=== PATIENT | female | born 1960 | race Caucasian/White ===

== ENCOUNTER 2019-10-17 06:14 | Outpatient (CLI) | payer OTHER, SELFPAY ==
[2019-10-17 06:30] VITALS: BP 132/82; PULSE 55; RESP 16; TEMP 37.1; O2SAT 96; BMI 30.1
[2019-10-17] MEDS: sodium chloride 0.9% 1,000 ML 30 ML IV (06:37)
--- NOTE | 2019-10-17 06:54 | ANES.PREANE2 ---
Pre-Anesthetic Assessment Pre-Anesthetic Assessment: Height/Weight: Height 1.6 m Weight 77.111 kg Temp Pulse Resp BP Pulse Ox 98.8 F 55 L 16 132/82 96 10/17/19 06:30 10/17/19 06:30 10/17/19 06:30 10/17/19 06:30 10/17/19 06:30 Preop Diagnosis: Mitral valve regurg Proposed Procedure: Operation Date: 10/17/19 07:00 Proposed Procedures p RAMIN (Transesophageal Echocardiogram)(Not Applicable) - Shefali Skaggs MD Was Beta Uday taken within 24 hours: Yes Last intake: 2099 Last Intake: 21:00 Social: Social History: Tobacco and No alcohol Packs per day: 1 Pack years: 40 Exam: Pre-Anes Outpt Exam: alert, oriented x 3, clear to auscultation bilaterally and regular rate & rhythm Airway: Submandibular: WNL Cervical ROM: WNL MP: 3 Dentition: Partials Pulmonary: Pulmonary: Sleep apnea (CPAP at night) CV/HEM: CV/HEM: HTN and Murmur Comments: mitral valve regurg : : None reported Hepatic: Hepatic: None reported GI: GI: GERD Comments: controlled Metabolic: Metabolic: DM Comments: avg 150 Musc/skel: Musc/skel: Lower Back Pain and OA/DJD Neuropsych: Neuropsych: Anxiety and Depression Anesthetic Plan: ASA status: 3 Anesthesia: Anesthesia Evaluation and MAC Risk of > 500 ml blood loss (7ml/kg in children): No Meds/Allergies Current Medications: Current Medications Generic Name Dose Route Start Last Admin Trade Name Freq PRN Reason Stop Dose Admin Sodium Chloride 1,000 mls @ 30 ml s/hr 10/17/19 06:30 10/17/19 06:37 Sodium Chloride 0.9% IV 10/18/19 06:29 30 mls/hr .Q24H LIVIER Administration PFSH Anesthesia PFSH: Medical History Diabetes HTN (hypertension) Hyperlipidemia Mitral regurgitation Sleep apnea Family History Grandmother Stroke HOCM (hypertrophic obstructive cardiomyopathy) Family/Other Stroke Mother HOCM (hypertrophic obstructive cardiomyopathy) surgery for HCM in her 40's Social History Smoking and tobacco status: current every day smoker Alcohol intake: never Data Anesthesia Cardiac Studies: No Data to Display
--- NOTE | 2019-10-17 07:00 | USCV_ITS ---
Irena Joyce Age: 59 Gender: F : 1960 Exam Date: 10/17/2019 07:23 Ordering Phys: Shefali Skaggs MD ([email or web address]) Technologist: Jeffy Nicholas [place] [facility] [place]: SEVER MR BP: / HR: 46 Rhythm: Sinus Technical Quality: Good MEASUREMENTS (Male / Female) Normal Values 2D ECHO LVOT Diameter 2.0 cm Medications Patient given IV sedation by anesthesia service, for details please refer to the anesthesia report. Complications None Proc. Components Images were obtained from mid esophageal and transgastric level. FINDINGS Left Ventricle Normal left ventricular cavity size. Asymmetrical septal hypertrophy with basal interventricular septum measured at 3 cm and posterior wall measured at 1.2 cm. Normal left ventricular systolic function. Left ventricular ejection fraction is estimated at 65 %. No regional wall motion abnormalities. Right Ventricle Normal right ventricular size and systolic function. Right ventricular systolic pressure 26 mmHg. Right Atrium Normal right atrial size. Left Atrium Mildly increased left atrial size. LA Appendage Normal left atrial appendage. Normal flow velocities in the left atrial appendage. No thrombus visualized in the left atrial appendage. IA Septum Normal interatrial septum. No patent foramen ovale or atrial septal defect by color Doppler or agitated saline study (bubble study). Mitral Valve Systolic anterior motion of anterior mitral valve leaflet. No mitral valve stenosis. Mild to moderate mitral valve regurgitation. Aortic Valve Mildly thickened trileaflet aortic valve. Flow acceleration noted in left ventricular outflow tract. Peak velocity across left ventricular outflow tract of 2.6 m/s, peak gradient across left ventricular outflow tract of 27 mm Hg. No aortic valve stenosis. Trace aortic valve regurgitation. Tricuspid Valve Structurally normal tricuspid valve. No tricuspid valve stenosis. Mild to moderate tricuspid valve regurgitation. Pulmonic Valve Structurally normal pulmonic valve. No pulmonary valve stenosis. Trace pulmonary valve regurgitation. Pericardium No pericardial effusion. Aorta Normal size aortic root and proximal ascending aorta. No aortic dilation aneurysm or dissection. CONCLUSIONS 1. Normal left ventricular cavity size and systolic function. Asymmetrical septal hypertrophy with basal interventricular septum measured at 3 cm and posterior wall measured at 1.2 cm. Left ventricular ejection fraction is estimated at 65 %. No regional wall motion abnormalities. 2. Normal right ventricular size and systolic function. 3. Mildly increased left atrial size. 4. Mild to moderate tricuspid valve regurgitation. 5. Systolic anterior motion of anterior mitral valve leaflet. Peak gradient across left ventricular outflow tract of 27 mm Hg. 6. These findings are likely suggestive of hypertrophic cardiomyopathy. Shefali Skaggs MD (Electronically Signed) Final Date: 20 October 2019 12:19 S
[2019-10-17 08:00] VITALS: BP 106/62; PULSE 69; RESP 17; TEMP 36.9; O2SAT 95
--- NOTE | 2019-10-17 08:04 | P.PCN_ITS ---
Procedure/Consent Time out: Time Out Performed: Yes Consent: Consent for Procedure: Consent obtained from patient Procedure Narrative: RAMIN Procedure note Indication: For assessment of mitral regurgitation Sedation: Propofol by anesthesia The patient was brought down to the coreroom foundry laborer (CPRU). Procedure was explained to the patient in detail and informed consent was obtained. Timeout was called. After achieving adequate sedation, the probe was inserted on first attempt. No blood on the probe post procedure. Prelim report: Normal left ventricle size and systolic function. Moderate mitral valve regurgitation. no left atrial or left atrial appendage mass or thrombus visualized. No ASD or PFO identified. Full report to follow. Patient tolerated the procedure well and initial recovery in coreroom foundry laborer. Acute Procedures Epistaxis Control: Time out performed: Yes
--- NOTE | 2019-10-17 08:08 | ANE.PACU2 ---
 Inpatient post-anesthesia follow up: Airway intact: Yes Vital signs: Temperature 98.8 F Pulse Rate 55 Respiratory Rate 16 Blood Pressure 132/82 Pulse Oximetry 96 Oxygen Delivery Me thod Room Air Oxygen Flow Rate Fraction of Inspir ed Oxygen Hydration adequate: Yes Nausea and vomiting: No Pain level: 1 Mental status: Baseline
[2019-10-17 08:15] VITALS: BP 112/72; PULSE 71; RESP 18; TEMP 37; O2SAT 96
[2019-10-17 08:42] VITALS: BP 120/60; PULSE 53; RESP 18; TEMP 37; O2SAT 96
== END 2019-10-17 06:15 | disposition home or self-care (01) ==
PROVIDERS: PCP Nurse Practitioner Family; Visit Provider Internal Medicine Cardiovascular Disease
PROC: (CPT 93312; principal; 2019-10-17 07:00)
DX: I34.0 Nonrheumatic mitral (valve) insufficiency (principal)
CPT/HCPCS: 12345; 93312; 93320; 93325; J7030

== ENCOUNTER 2020-03-22 11:58 | Outpatient (CLI) | payer OTHER, SELFPAY ==
[2020-03-22 12:30] VITALS: BMI 29.2
--- NOTE | 2020-03-22 12:31 | ECG_ITS ---
[facility] Test Date: 2020-03-22 Pat Name: Irena Joyce Department: Room: Gender: Female [employer]: : 1960 Requested By: Shefali Skaggs Order Number: [id number] Chen MD: Shefali Skaggs M.D. Interpretive Statements NAME OF STUDY: TREADMILL STRESS ECHOCARDIOGRAM INDICATION: Obstructive Hypertrophic cardiomyopathy Baseline blood pressure of 120/75 mmHg and heart rate of 65 bpm and oxygen saturation of 94%. EKG showed normal sinus rhythm, right axis deviation with nonspecific ST depression. The patient exercised for 1 minutes 52 seconds on a standard Silverio protocol. Patient attained a maximum heart rate of 104 beats per minute(64 % of the maximum predicted heart rate) with a blood pressure at the peak exercise of 149/91 mm Hg. The EKG at the peak exercise revealed sinus tachycardia at 104 bpm. Non specific 1/2-1 mm horizontal to downsloping ST depression in infero-lateral leads. Patient did not have any chest pain or any significant arrhythmias with the exercise. The study was terminated due to fatigue and shortness of breath. Blood pressure at the end of the recovery phase was 124/68 mm Hg with a heart rate of 57 beats per minute and oxygen saturation of 84%. CONCLUSION: 1. Normal EKG response to treadmill exercise with submaximal stress. 2. No exercise-induced chest pain or cardiac arrhythmia. 3. Decreased exercise tolerance, attained a maximum of 4.8 METs. 4. Echocardiogram portion of the study will be reported separately Electronically Signed On 03-29-2020 18:59:26 CDT by Shefali Skaggs M.D. [id number]
--- NOTE | 2020-03-22 12:31 | USCV_ITS ---
Stress Echo Irena Joyce Age: 59 Gender: F : 1960 Exam Date: 03/22/2020 12:49 Ordering Phys: Shefali Skaggs MD ([email or web address]) Technologist: Jany Morataya Exam Location: [facility] [place] Indication: Hypertophic Obstructive Cardiomyopathy Rhythm: Sinus Patient History: Chest pain, Valvular heart disease Cardiac Medications: Beta guy Medications in past 24 hours: Beta guy Contrast: Stress Results Protocol: Silverio Total dose(mL): Exercise Duration (min:sec): 01:52 METS: 4.6 Resting HR: 65 Resting BP: 120 / 75 Peak HR: 104 Peak BP: 149 / 100 Max Predicted HR: 162 64 % Max Predicted HR Target HR: 138 Double Product: [id number] Stress Summary: The patient's target heart rate was not achieved BP Response: Normal Reason for Termination: Maximal effort/unable to continue Cardiac Symptoms: Short of Breath, Fatigue ECG Analysis Resting ECG: Stress ECG: Arrhythmia: MEASUREMENTS (Male/Female) Normal Values FINDINGS Baseline echocardiogram: Normal left ventricular size and systolic function with ejection fraction estimated at 60%. Normal right ventricular size and systolic function. Resting left ventricular outflow tract peak velocity of 2.6 m/s and peak gradient of 28 mm Hg. Peak left ventricular outflow tract velocity of 4.3 m/s and peak gradient with Valsalva of 73 mmHg. Peak exercise echocardiogram: There is some augmentation of baseline left ventricular systolic function with submaximal stress. Patient did not reach target heart rate. Peak left ventricular outflow tract velocity of 3 m/s and peak gradient with exercise of 37 mmHg. Recovery echocardiogram: Normal left ventricular systolic function with no new regional wall motion abnormality noted. CONCLUSIONS 1. This is a exercise stress echocardiogram. 2. Patient exercised for 1 minutes 52 seconds and reached 4.6 METS. Patient reached 64% of target heart rate. Double product of 15,496. 3. Normal resting echocardiogram. There were no submaximal stress-induced wall motion abnormalities. 4. Resting left ventricular outflow tract peak velocity of 2.6 m/s and peak gradient of 28 mm Hg. Peak left ventricular outflow tract velocity of 4.3 m/s and peak gradient with Valsalva of 73 mmHg. Peak left ventricular outflow tract velocity of 3 m/s and peak gradient with exercise of 37 mmHg. 5. EKG portion of the study would be reported separately. Shefali Skaggs MD (Electronically Signed) Final Date: 01 April 2020 13:08 S
[2020-03-22 13:49] VITALS: BP 126/84; PULSE 62
== END 2020-03-22 11:59 | disposition home or self-care (01) ==
LOC: CDL 11:59
PROVIDERS: PCP Nurse Practitioner Family; Visit Provider Internal Medicine Cardiovascular Disease
DX: I42.1 Obstructive hypertrophic cardiomyopathy (principal)
CPT/HCPCS: 93017; 93350

== ENCOUNTER 2021-05-20 12:48 | Outpatient (CLI) | payer OTHER, SELFPAY ==
--- NOTE | 2021-05-20 12:52 | XR_ITS ---
WS: [id number] DEXA (DUAL ENERGY X-RAY ABSORPTIOMETRY) Bone mineral density was performed using a [employer] machine. HISTORY: POSTMENOPAUSAL STATE COMPARISON: None available. Lumbar spine BMD (L1-L4): 1.193 g/cm2 T score: 0.1 Z score: 1.0 Total hip BMD: Left: 1.079 g/cm2. T score: 0.6 Z score: 1.2 Right: 1.022 g/cm2. T score: 0.1 Z score: 0.8 10 year probability of a major osteoporotic fracture is 13%. XR/XR DEXA axial skeleton* [id number] IMPRESSION: NORMAL BONE MINERAL DENSITY based upon the WHO classification for females.
== END 2021-05-20 12:49 | disposition home or self-care (01) ==
PROVIDERS: PCP Nurse Practitioner Family; Visit Provider Clinical Nurse Specialist Adult Health
DX: Z78.0 Asymptomatic menopausal state (principal)
CPT/HCPCS: 77080

== ENCOUNTER 2022-11-25 10:14 | Emergency (ER) | payer OTHER, SELFPAY ==
[2022-11-25 10:21] VITALS: BP 147/94; PULSE 65; RESP 16; TEMP 36.6; O2SAT 95; BMI 26.9
--- NOTE | 2022-11-25 10:35 | ED_ITS ---
Documented by User: SUZIE Nina 11/25/22 11:12 HPI - Animal Bite General: Chief Complaint: Animal Bite Stated Complaint: Cat bite on R wrist Time Seen by Provider: 11/25/22 10:16 History of Present Illness: Irena is a 62-year-old [id number] female that presents to the emergency department with a cat bite. Patient states that her cat last night. While dying the animal bit her on the right wrist. This morning she noted a reddened area that was warm to the touch and very tender. Tetanus updated 5 years ago Associated symptoms: Deny chills, fever(s) or headache(s) Review of Systems General: Reports: 10 or more systems reviewed and unremarkable except in HPI and below Const: Denies: fever(s), chills, change in appetite, change in weight, fatigue or malaise Card: Denies: chest pain, palpitations, irregular heart rhythm, edema, dyspnea on exertion, orthopnea or leg pain with exertion Resp: Denies: dyspnea, productive cough, non-productive cough, wheezing, stridor or chest congestion GI: Denies: abdominal pain, nausea, vomiting, dysphagia, diarrhea, constipation, bloating, GI cramping or hematochezia : Denies: flank pain, difficulty voiding, dysuria, urinary frequency, urinary urgency, urinary hesitancy, oliguria or hematuria Musc: Denies: neck pain, back pain, extremity pain, joint pain, joint swelling, joint redness, joint warmth or muscle weakness Skin/Breast: Reports: other (Cellulitic area to the right wrist that is approximately 4 cm in diameter. ); Denies: rash, pruritus, erythema, photosensitivity or new lesions Neuro: Denies: headache(s), numbness in extremities, weakness in extremities, sensory changes, lack of coordination, difficulty walking, frequent falls, dizziness, confusion, Slurred speech present, difficulty communicating thoughts, seizure-like activity or involuntary movements Endo: Denies: polyuria, polydipsia or tired all the time Kiran/Lymph: Denies: easy bruising or easy bleeding PFS ED PFSH: Medical History Chronic back pain hx of herniated disc Diabetes HTN (hypertension) Hyperlipidemia Macular degeneration Mitral regurgitation Neuropathy Nonalcoholic fatty liver NSVT (nonsustained ventricular tachycardia) Screening for colon cancer Sleep apnea Surgical History Hx of hysterectomy Hx of tonsillectomy Family History Grandmother Stroke HOCM (hypertrophic obstructive cardiomyopathy) Family/Other Stroke Mother HOCM (hypertrophic obstructive cardiomyopathy) surgery for HCM in her 40's Social History Smoking and tobacco status: former smoker Quit status (tobacco): has quit using tobacco Year quit tobacco: 2020 Alcohol intake: never Physical Exam Const: COMMON NORMALS: no acute distress, patient oriented x3 and alert GENERAL APPEARANCE: cooperative ORIENTATION/CONSCIOUSNESS: Yes awake, Yes oriented to person, Yes oriented to place and Yes oriented to time HENMT: COMMON NORMALS: normocephalic and atraumatic HEAD & SCALP: normocephalic and atraumatic FACE & SINUS: normal facial exam TYMPANIC MEMBRANE: TM abnormal TM laterality: right and other (Swelling but without erythema) MOUTH: Normal oral and palatal mucosa present THROAT: posterior oropharynx normal Eye: COMMON NORMALS: Equal, round and reactive pupils present, EOMs intact bilaterally, conjunctivae normal and no scleral icterus GENERAL EYE: appearance normal, both eyes and all related structures ALIGNMENT: Yes alignment normal PERIORBITAL: periorbital findings normal CONJUNCTIVA: Yes conjunctivae normal PUPIL: Yes Equal, round and reactive pupils present Neck/C-Spine: COMMON NORMALS: full ROM GENERAL: Yes normal visual inspection Lymph: LYMPHATIC: no lymphadenopathy noted Chest: COMMONS NORMALS: normal inspection of the chest Breast/axilla inspection: Yes no chest deformity, asymmetry, normal contours, no nodules, masses, tenderness Resp: COMMON NORMALS: normal respiratory effort, No retractions, No use of accessory muscles and clear to auscultation bilaterally EFFORT & INSPECTION: Yes able to speak in complete sentences and Yes symmetric chest movement AUSCULTATION: clear to auscultation bilaterally Cardio: COMMON NORMALS: regular rate, regular rhythm and Peripheral pulses 2+ throughout RATE: regular rate RHYTHM: regular rhythm PERIPHERAL PULSES: Peripheral pulses 2+ throughout GI: COMMON NORMALS: Normal to inspection, nondistended, normoactive bowel sounds present, Soft to palpation, non-tender and No hepatosplenomegaly present INSPECTION: Yes normal to inspection AUSCULTATION: Yes normoactive bowel sounds PALPATION: Yes Soft to palpation and Yes No hepatosplenomegaly present RECTAL EXAM: deferred Extremity: COMMON NORMALS: normal to inspection NARRATIVE EXTREMITY EXAM: Right upper extremity: Skin is clean and dry. There are 2 puncture wounds noted to the right volar wrist She states this was from her cat Cellulitic area around the wounds measuring about 4 to 5 cm Warm to the touch. No drainage Neurovascularly intact GENERAL: Yes normal exam except as noted Neuro: COMMON NORMALS: patient oriented x3 SENSORIUM/ORIENTATION: Yes alert, Yes oriented to person, Yes oriented to place and Yes oriented to time CRANIAL NERVES: Yes CN normal except as noted Psych: COMMON NORMALS: mental status grossly normal, Normal thought process present, cooperative, activity/motor behavior normal, denies homicidal ideation and denies suicidal ideation THOUGHT PROCESS: Normal thought process present Skin: COMMON NORMALS: no rashes or lesions noted, no wounds and turgor normal GENERAL SKIN EXAM: no rashes or lesions noted and turgor normal Course Vital Signs: Vital signs: Vital Signs Temperature 97.9 F 11/25/22 10:21 Pulse Rate 66 11/25/22 11:15 Respiratory Rate 16 11/25/22 10:21 Blood Pressure 134/83 11/25/22 11:15 Pulse Oximetry 95 11/25/22 11:15 Oxygen Delivery Me thod Room Air 11/25/22 10:21 MDM - Animal Bite Medical Decision Making Patient was seen in the emergency department due to a cat bite. Patient has a cellulitic area to the volar aspect of the right wrist. Her tetanus was approximately 5 years ago The patient reports the animal was not vaccinated; however, it is an indoor cat. There are other animals in the home that are outdoor cats but there is been no evidence of aggression by these animals.. There is another animal sick in the home?a dog that had a seizure yesterday. Patient is declining rabies vaccine. I am updating her tetanus and initiating antibiotic treatment. She is to return to the emergency department if she develops worsening symptoms. Otherwise follow-up with primary care Discharge Plan Discharge Patient Disposition: Home Clinical Impression: Cat bite, Cellulitis Condition: Stable Prescriptions: New amoxicillin-pot clavulanate 875-125 mg tablet 1 tab PO BID 7 Days Qty: 14 0RF No Action esomeprazole magnesium [Nexium] 40 mg capsule,delayed release(DR/EC) 40 mg PO DAILY hydrocodone-acetaminophen 10-325 mg tablet 1 tab PO QID PRN (Reason: Pain (Scale Score 4-6)) albuterol sulfate [ProAir HFA] 90 mcg/actuation HFA aerosol inhaler 2 puff INHALATION Q6H PRN (Reason: shortness of breath or wheezing) Qty: 8.5 0RF methylprednisolone [Medrol] 4 mg tablet 4 mg PO DAILY 4 Days Qty: 4 0RF amoxicillin-pot clavulanate [Augmentin] 500-125 mg tablet 1 tab PO TID 10 Days Qty: 30 0RF (DME) Accu-Chek Guide test strips Strip See Rx Instructions .Route Rx Instructions: As directed (DME) blood-glucose meter [Accu-Chek Guide Glucose Meter] Misc See Rx Instructions .Route Rx Instructions: As directed (DME) CPAP machine auto-titrate See Rx Instructions .Route .MEDSUPPLY Rx Instructions: 11-14 cm H2O pressure for ELOINA Prevnar 20 (PF) 0.5 mL syringe 0.5 ml IM ONCE Qty: 0.5 0RF Shingrix Adjuvant Component-PF Suspension 0.5 ml IM ONCE Qty: 0.5 1RF (DME) CPAP supplies, tubing mask and all necessary parts See Rx Instructions .Route .MEDSUPPLY Qty: 1 0RF Rx Instructions: As directed lovastatin 10 mg tablet 10 mg PO DAILY Qty: 90 3RF sertraline 100 mg tablet 100 mg PO DAILY Qty: 90 3RF metoprolol tartrate 100 mg tablet 50 mg PO BID 90 Days Qty: 90 3RF gabapentin 400 mg capsule 400 mg PO TID 90 Days Qty: 270 3RF tizanidine 4 mg tablet 4 mg PO QID PRN (Reason: Muscle Spasm) Qty: 90 3RF Bydureon BCise 2 mg/0.85 mL auto-injector 2 mg SUBCUT Q7D Qty: 0.85 11RF Discharge Orders: Discharge ED (Routine); Ordered 11/25/22 Ordered By: [facility] Bullard [facility] Referrals: Nadeem Eagle, B[employer] TO[employer] BUFFER [Primary Care Provider] - Discharge Diet: Advance as tolerated Discharge Activity: Resume usual activity Patient Instructions: Cellulitis, Animal Bite (ED), Pain Management Activity Restrictions/Additional Instructions: Please return to the emergency department for new concerning or worsening symptoms. Take your antibiotics as prescribed Coding Level of Care Code ED Plastic Extrusion Operator for Chg Fwd Documented by User: Bulmaro Bunch DO 11/28/22 05:17 HPI - Animal Bite General: Chief Complaint: Animal Bite Stated Complaint: Cat bite on R wrist Time Seen by Provider: 11/25/22 10:16 PFS ED PFSH: Medical History Chronic back pain hx of herniated disc Diabetes HTN (hypertension) Hyperlipidemia Macular degeneration Mitral regurgitation Neuropathy Nonalcoholic fatty liver NSVT (nonsustained ventricular tachycardia) Screening for colon cancer Sleep apnea Surgical History Hx of hysterectomy Hx of tonsillectomy Family History Grandmother Stroke HOCM (hypertrophic obstructive cardiomyopathy) Family/Other Stroke Mother HOCM (hypertrophic obstructive cardiomyopathy) surgery for HCM in her 40's Social History Smoking and tobacco status: former smoker Quit status (tobacco): has quit using tobacco Year quit tobacco: 2020 Alcohol intake: never Course Vital Signs: Vital signs: Vital Signs Temperature 97.9 F 11/25/22 10:21 Pulse Rate 66 11/25/22 11:15 Respiratory Rate 16 11/25/22 10:21 Blood Pressure 134/83 11/25/22 11:15 Pulse Oximetry 95 11/25/22 11:15 Oxygen Delivery Me thod Room Air 11/25/22 10:21 MDM - Animal Bite Medical Decision Making Patient was seen in the emergency department due to a cat bite. Patient has a cellulitic area to the volar aspect of the right wrist. Her tetanus was approximately 5 years ago The patient reports the animal was not vaccinated; however, it is an indoor cat. There are other animals in the home that are outdoor cats but there is been no evidence of aggression by these animals.. There is another animal sick in the home?a dog that had a seizure yesterday. Patient is declining rabies vaccine. I am updating her tetanus and initiating antibiotic treatment. She is to return to the emergency department if she develops worsening symptoms. Otherwise follow-up with primary care Chart reviewed and patient discussed with midlevel. Agree with assessment and plan. Medical Records I reviewed the patient's medical records. Lab Data I reviewed the patient's lab results. Discharge Plan Discharge Patient Disposition: Home Clinical Impression: Cat bite, Cellulitis Condition: Stable Prescriptions: New amoxicillin-pot clavulanate 875-125 mg tablet 1 tab PO BID 7 Days Qty: 14 0RF No Action esomeprazole magnesium [Nexium] 40 mg capsule,delayed release(DR/EC) 40 mg PO DAILY hydrocodone-acetaminophen 10-325 mg tablet 1 tab PO QID PRN (Reason: Pain (Scale Score 4-6)) albuterol sulfate [ProAir HFA] 90 mcg/actuation HFA aerosol inhaler 2 puff INHALATION Q6H PRN (Reason: shortness of breath or wheezing) Qty: 8.5 0RF methylprednisolone [Medrol] 4 mg tablet 4 mg PO DAILY 4 Days Qty: 4 0RF amoxicillin-pot clavulanate [Augmentin] 500-125 mg tablet 1 tab PO TID 10 Days Qty: 30 0RF (DME) Accu-Chek Guide test strips Strip See Rx Instructions .Route Rx Instructions: As directed (DME) blood-glucose meter [Accu-Chek Guide Glucose Meter] [facility] See Rx Instructions .Route Rx Instructions: As directed (DME) CPAP machine auto-titrate See Rx Instructions .Route .MEDSUPPLY Rx Instructions: 11-14 cm H2O pressure for ELOINA Prevnar 20 (PF) 0.5 mL syringe 0.5 ml IM ONCE Qty: 0.5 0RF Shingrix Adjuvant Component-PF Suspension 0.5 ml IM ONCE Qty: 0.5 1RF (DME) CPAP supplies, tubing mask and all necessary parts See Rx Instructions .Route .MEDSUPPLY Qty: 1 0RF Rx Instructions: As directed lovastatin 10 mg tablet 10 mg PO DAILY Qty: 90 3RF sertraline 100 mg tablet 100 mg PO DAILY Qty: 90 3RF metoprolol tartrate 100 mg tablet 50 mg PO BID 90 Days Qty: 90 3RF gabapentin 400 mg capsule 400 mg PO TID 90 Days Qty: 270 3RF tizanidine 4 mg tablet 4 mg PO QID PRN (Reason: Muscle Spasm) Qty: 90 3RF Bydureon BCise 2 mg/0.85 mL auto-injector 2 mg SUBCUT Q7D Qty: 0.85 11RF Discharge Orders: Discharge ED (Routine); Ordered 11/25/22 Ordered By: Nic Lee Referrals: Nadeem Eagle [employer]FFER [Primary Care Provider] - Discharge Diet: Advance as tolerated Discharge Activity: Resume usual activity Patient Instructions: Cellulitis, Animal Bite (ED), Pain Management Activity Restrictions/Additional Instructions: Please return to the emergency department for new concerning or worsening symptoms. Take your antibiotics as prescribed Coding Level of Care Code ED Plastic Extrusion Operator for Steve Vail
[2022-11-25] MEDS: amoxicillin-clav 875-125 mg Tablet 1 TAB PO (10:48)
[2022-11-25] MEDS: tetanus-diphtheria tox (adult) 0.5 mL SDV IM (10:48)
[2022-11-25 11:15] VITALS: BP 134/83; PULSE 66; O2SAT 95
== END 2022-11-25 11:16 | disposition home or self-care (01) ==
PROVIDERS: Emergency Provider Nurse Practitioner; PCP Clinical Nurse Specialist Adult Health
DX: S61.551A Open bite of right wrist, initial encounter (principal); W55.01XA Bitten by cat, initial encounter; Z87.891 Personal history of nicotine dependence; E11.9 Type 2 diabetes mellitus without complications; I10 Essential (primary) hypertension; E78.5 Hyperlipidemia, unspecified; H35.30 Unspecified macular degeneration; L03.113 Cellulitis of right upper limb; Z23 Encounter for immunization
CPT/HCPCS: 90471; 90714; 99283

== ENCOUNTER → 2023-04-13 11:41 | Outpatient (BNVA) | payer OTHER, SELFPAY | PROVIDERS: PCP Clinical Nurse Specialist Adult Health; Visit Provider Clinical Nurse Specialist Adult Health | DX: E11.9 Type 2 diabetes mellitus without complications (principal); I10 Essential (primary) hypertension | CPT/HCPCS: 80053; 80061; 83036; 84443; 85025 ==

== ENCOUNTER → 2023-06-27 14:16 | Outpatient (BNVA) | payer OTHER, SELFPAY | PROVIDERS: PCP Clinical Nurse Specialist Adult Health; Visit Provider Clinical Nurse Specialist Adult Health | DX: E11.9 Type 2 diabetes mellitus without complications (principal); I10 Essential (primary) hypertension; I34.0 Nonrheumatic mitral (valve) insufficiency; G47.30 Sleep apnea, unspecified; I42.1 Obstructive hypertrophic cardiomyopathy; J02.9 Acute pharyngitis, unspecified | CPT/HCPCS: 87880 ==

== ENCOUNTER 2023-08-19 20:55 | Emergency (ER) | payer OTHER, SELFPAY ==
[2023-08-19 21:01] VITALS: BP 132/84; PULSE 67; RESP 16; TEMP 36.6; O2SAT 96; BMI 27.4
--- NOTE | 2023-08-19 21:10 | ED_ITS ---
HPI - Skin/Abscess/Foreign Bdy General: Chief complaint: Skin/Abscess/Foreign Body Stated complaint: Face Swelling Time Seen by Provider: 08/19/23 21:10 History of Present Illness: Patient presents with some left anterior cervical neck tenderness. Patient denies any difficulty swallowing. Patient is managing secretions well. Patient has a history of cardiac valvular heart disease, ELOINA, and diabetes mellitus. Review of Systems General: Reports: 10 or more systems reviewed and unremarkable except in HPI and below PFSH ED PFSH: Medical History Chronic back pain hx of herniated disc Diabetes HTN (hypertension) Hyperlipidemia Macular degeneration Mitral regurgitation Neuropathy Nonalcoholic fatty liver NSVT (nonsustained ventricular tachycardia) Screening for colon cancer Sleep apnea Surgical History Hx of hysterectomy Hx of tonsillectomy Family History Grandmother Stroke HOCM (hypertrophic obstructive cardiomyopathy) Family/Other Stroke Mother HOCM (hypertrophic obstructive cardiomyopathy) surgery for HCM in her 40's Social History Smoking and tobacco/nicotine status: former use of tobacco/nicotine Quit status (tobacco/nicotine): has quit using Year quit tobacco: 2020 Alcohol intake: never Substance/Drug Use: never Physical Exam Const: COMMON NORMALS: alert HENMT: COMMON NORMALS: normocephalic HEAD & SCALP: normocephalic Neck/C-Spine: COMMON NORMALS: full ROM and no meningeal signs GENERAL: No anterior neck swelling, No lymphadenopathy and Yes tender (Left anterior) Resp: COMMON NORMALS: normal respiratory effort and clear to auscultation bilaterally AUSCULTATION: clear to auscultation bilaterally Cardio: COMMON NORMALS: regular rate and regular rhythm RATE: regular rate RHYTHM: regular rhythm Extremity: COMMON NORMALS: normal to inspection Neuro: SENSORIUM/ORIENTATION: Yes alert MENINGEAL SIGNS: Yes no meningeal signs Skin: COMMON NORMALS: turgor normal GENERAL SKIN EXAM: turgor normal Course Vital Signs: Vital signs: Vital Signs Temperature 97.8 F 08/19/23 21:01 Pulse Rate 67 08/19/23 21:01 Respiratory Rate 16 01/07/24 21:01 Blood Pressure 132/84 08/19/23 21:01 Pulse Oximetry 96 08/19/23 21:01 Oxygen Delivery Me thod Room Air 08/19/23 21:01 MDM - Skin/Abscess/Foreign Bdy Medicial Decision Making 62-year-old female presents with soreness to the left anterior neck with mild swelling. On exam patient has minimal to no swelling to the left neck. No redness. No palpable nodule or masses noted. Patient does report tenderness with palpation. Examination of the oral cavity notes no significant swelling or redness. Patient has fair dentition. Differential diagnosis includes but not limited to sialoadenitis, lymphadenitis, dental abscess, upper respiratory infection. Patient is managing secretions well. No signs of severe illness. Vital signs are normal. Possible infected salivary gland versus lymphadenitis. Will go ahead and treat with clindamycin 300 mg 4 times a day for the next 7 days. Instructed patient to monitor for worsening symptoms such as increasing redness and swelling of the neck or difficulty of swallowing. Patient reported understanding and agreed to plan. No radiology studies performed this visit Discharge Plan Discharge Patient Disposition: Home Clinical Impression: Sialadenitis Condition: Stable Prescriptions: New clindamycin HCl 300 mg capsule 300 mg PO QID 7 Days Qty: 28 0RF No Action esomeprazole magnesium [Nexium] 40 mg capsule,delayed release(DR/EC) 40 mg PO DAILY hydrocodone-acetaminophen 10-325 mg tablet 1 tab PO QID PRN (Reason: Pain (Scale Score 4-6)) albuterol sulfate [ProAir HFA] 90 mcg/actuation HFA aerosol inhaler 2 puff INHALATION Q6H PRN (Reason: shortness of breath or wheezing) Qty: 8.5 0RF methylprednisolone [Medrol] 4 mg tablet 4 mg PO DAILY 4 Days Qty: 4 0RF (DME) Accu-Chek Guide test strips Strip See Rx Instructions .Route Rx Instructions: As directed (DME) blood-glucose meter [Accu-Chek Guide Glucose Meter] Misc See Rx Instructions .Route Rx Instructions: As directed (DME) CPAP machine auto-titrate See Rx Instructions .Route .MEDSUPPLY Rx Instructions: 11-14 cm H2O pressure for ELOINA Prevnar 20 (PF) 0.5 mL syringe 0.5 ml IM ONCE Qty: 0.5 0RF Shingrix Adjuvant Component-PF Suspension 0.5 ml IM ONCE Qty: 0.5 1RF (DME) CPAP supplies, tubing mask and all necessary parts See Rx Instructions .Route .MEDSUPPLY Qty: 1 0RF Rx Instructions: As directed Trulicity 0.75 mg/0.5 mL pen injector 0.75 mg SUBCUT .weekly Qty: 2 3RF penicillin V potassium 500 mg tablet 500 mg PO TID 10 Days Qty: 30 0RF lovastatin 10 mg tablet 10 mg PO DAILY Qty: 90 3RF metoprolol tartrate 100 mg tablet 50 mg PO BID 90 Days Qty: 90 3RF tizanidine 4 mg tablet 4 mg PO QID PRN (Reason: Muscle Spasm) Qty: 90 3RF gabapentin 400 mg capsule 400 mg PO TID 90 Days Qty: 270 0RF sertraline 100 mg tablet 100 mg PO DAILY Qty: 90 3RF Discharge Orders: Discharge ED (Routine); Ordered 08/19/23 Ordered By: René Chambers Referrals: Nadeem Eagle NP [Primary Care Provider] - Discharge Diet: Usual diet Discharge Activity: Increase activity as tolerated Patient Instructions: Sialoadenitis (ED) Activity Restrictions/Additional Instructions: Drink plenty of water and fluids. Use acetaminophen and ibuprofen for pain and discomfort. Use clindamycin 300 mg 1 capsule 4 times a day for the next 7 days. Follow-up with primary care in 1 week for recheck. Return to ER for worsening symptoms such as difficulty swallowing, increasing redness and swelling to the neck, or new concerns. Coding Level of Care Code ED Elect Equip Maint Eng for Steve Vail
[2023-08-19] MEDS: clindamycin 150 mg Capsule 300 MG PO (21:48)
[2023-08-19 21:57] VITALS: PULSE 70; RESP 18
== END 2023-08-19 21:59 | disposition home or self-care (01) ==
PROVIDERS: Emergency Provider Nurse Practitioner Family; PCP Clinical Nurse Specialist Adult Health
DX: K11.20 Sialoadenitis, unspecified (principal); Z79.85 Long-term (current) use of injectable non-insulin antidiabetic drugs; Z87.891 Personal history of nicotine dependence; I10 Essential (primary) hypertension; E78.5 Hyperlipidemia, unspecified; H35.30 Unspecified macular degeneration; E11.40 Type 2 diabetes mellitus with diabetic neuropathy, unspecified
CPT/HCPCS: 99283

== ENCOUNTER 2023-09-04 09:27 | Emergency (ER) | payer OTHER, SELFPAY ==
[2023-09-04 09:58] VITALS: BP 125/80; PULSE 69; RESP 14; TEMP 36.9; O2SAT 95; BMI 27.4
[2023-09-04 12:46] VITALS: O2SAT 96
[2023-09-04] MEDS: morphine 4 mg/mL SDV 1 mL IM (12:46)
[2023-09-04] MEDS: dexamethasone 10 mg/mL INJ IM (12:47)
[2023-09-04] MEDS: methocarbamol 750 mg Tablet 1500 MG PO (12:48)
--- NOTE | 2023-09-04 12:55 | W.ED.BACK ---
HPI - Back Pain/Injury General: Chief Complaint: Back Pain/Injury Stated Complaint: back pains Time Seen by Provider: 09/04/23 11:48 Source: patient Mode of arrival: ambulatory Limitations: no limitations History of Present Illness: 63-year-old female has chronic back pain states she had worsening back pain last 3 to 4 days states she been having spasms especially with walking she denies any bowel or bladder incontinence. She rates the pain currently 8 4 out of 10. She does see pain management. She takes hydrocodone for pain at home Associated symptoms: Deny abdominal pain, chills, fever(s), nausea or vomiting Review of Systems Const: Denies: fever(s), chills, body aches or change in appetite ENMT: Denies: throat pain or dental pain Card: Denies: chest pain Resp: Denies: dyspnea GI: Denies: abdominal pain, nausea, vomiting or diarrhea Musc: Reports: back pain; Denies: neck pain Skin/Breast: Denies: rash Neuro: Denies: headache(s) PFSH ED PFSH: Medical History Chronic back pain hx of herniated disc Diabetes HTN (hypertension) Hyperlipidemia Macular degeneration Mitral regurgitation Neuropathy Nonalcoholic fatty liver NSVT (nonsustained ventricular tachycardia) Screening for colon cancer Sleep apnea Surgical History Hx of hysterectomy Hx of tonsillectomy Family History Grandmother Stroke HOCM (hypertrophic obstructive cardiomyopathy) Family/Other Stroke Mother HOCM (hypertrophic obstructive cardiomyopathy) surgery for HCM in her 40's Social History Smoking and tobacco/nicotine status: former use of tobacco/nicotine Quit status (tobacco/nicotine): has quit using Year quit tobacco: 2020 Alcohol intake: never Substance/Drug Use: never Physical Exam Const: COMMON NORMALS: no acute distress, patient oriented x3 and healthy appearing HENMT: COMMON NORMALS: normocephalic and atraumatic HEAD & SCALP: normocephalic and atraumatic Neck/C-Spine: COMMON NORMALS: full ROM and supple Chest: COMMONS NORMALS: normal inspection of the chest Resp: COMMON NORMALS: normal respiratory effort Cardio: COMMON NORMALS: regular rate, regular rhythm and No murmurs present (Cardio) RATE: regular rate RHYTHM: regular rhythm GI: COMMON NORMALS: Normal to inspection, nondistended, normoactive bowel sounds present, Soft to palpation, non-tender and no masses PALPATION: Yes Soft to palpation Back/Pelvis: OTHER: Tenderness to lower back no saddle anesthesia Extremity: COMMON NORMALS: normal to inspection and full ROM Neuro: COMMON NORMALS: patient oriented x3, moves all extremities and no focal motor deficits Psych: COMMON NORMALS: mental status grossly normal, Normal thought process present and cooperative THOUGHT PROCESS: Normal thought process present Skin: COMMON NORMALS: no rashes or lesions noted and no wounds GENERAL SKIN EXAM: no rashes or lesions noted Course Vital Signs: Vital signs: Vital Signs Temperature 98.5 F 09/04/23 09:58 Pulse Rate 69 09/04/23 09:58 Respiratory Rate 14 09/04/23 09:58 Blood Pressure 125/80 09/04/23 09:58 Pulse Oximetry 96 09/04/23 12:46 Oxygen Delivery Me thod Room Air 09/04/23 09:58 MDM - Back Pain/Injury Medical Decision Making Patient presents here with low back pain chronic in nature she is well-appearing here she has no signs of cord compression or epidural abscess we will give her Decadron shot we will place her on muscle relaxants and Naprosyn she is to follow-up with her chronic pain specialist she is stable for discharge return if worsening. Medical Records I reviewed the patient's medical records. No radiology studies performed this visit Discharge Plan Discharge Patient Disposition: Home Clinical Impression: Chronic back pain Condition: Stable Prescriptions: New methocarbamol 750 mg tablet 750 mg PO Q6H PRN (Reason: spasms) Qty: 20 0RF Naprosyn 500 mg tablet 500 mg PO BID PRN (Reason: pain) Qty: 20 0RF No Action esomeprazole magnesium [Nexium] 40 mg capsule,delayed release(DR/EC) 40 mg PO DAILY hydrocodone-acetaminophen 10-325 mg tablet 1 tab PO QID PRN (Reason: Pain (Scale Score 4-6)) albuterol sulfate [ProAir HFA] 90 mcg/actuation HFA aerosol inhaler 2 puff INHALATION Q6H PRN (Reason: shortness of breath or wheezing) Qty: 8.5 0RF (DME) Accu-Chek Guide test strips Strip See Rx Instructions .Route Rx Instructions: As directed (DME) blood-glucose meter [Accu-Chek Guide Glucose Meter] Misc See Rx Instructions .Route Rx Instructions: As directed (DME) CPAP machine auto-titrate See Rx Instructions .Route .MEDSUPPLY Rx Instructions: 11-14 cm H2O pressure for ELOINA (DME) CPAP supplies, tubing mask and all necessary parts See Rx Instructions .Route .MEDSUPPLY Qty: 1 0RF Rx Instructions: As directed lovastatin 10 mg tablet 10 mg PO DAILY Qty: 90 3RF metoprolol tartrate 100 mg tablet 50 mg PO BID 90 Days Qty: 90 3RF gabapentin 400 mg capsule 400 mg PO TID 90 Days Qty: 270 0RF sertraline 100 mg tablet 100 mg PO DAILY Qty: 90 3RF Trulicity 0.75 mg/0.5 mL pen injector 0.75 mg SUBCUT Q7D Discharge Orders: Discharge ED (Routine); Ordered 09/04/23 Ordered By: Kayode Carmona Referrals: Nadeem Eagle, PRODUCT INSPECTION SUPERVISOR [Primary Care Provider] - 1-3 days Discharge Diet: Advance as tolerated Discharge Activity: Resume usual activity Patient Instructions: Back Pain (ED) Coding Level of Care Code ED Breast Surgeon for Steve V[place]
== END 2023-09-04 13:04 | disposition home or self-care (01) ==
PROVIDERS: Emergency Provider Emergency Medicine; PCP Clinical Nurse Specialist Adult Health
DX: G89.29 Other chronic pain (principal); M54.50 Low back pain, unspecified; Z79.85 Long-term (current) use of injectable non-insulin antidiabetic drugs; Z87.891 Personal history of nicotine dependence; I10 Essential (primary) hypertension; E78.5 Hyperlipidemia, unspecified; H35.30 Unspecified macular degeneration; E11.42 Type 2 diabetes mellitus with diabetic polyneuropathy
CPT/HCPCS: 96372; 99284; J1100; J2270

== ENCOUNTER → 2023-10-30 09:19 | Outpatient (BNVA) | payer OTHER, SELFPAY | PROVIDERS: PCP Clinical Nurse Specialist Adult Health; Visit Provider Clinical Nurse Specialist Adult Health | DX: E11.9 Type 2 diabetes mellitus without complications (principal) | CPT/HCPCS: 80053; 83036; 85025 ==

== ENCOUNTER 2023-12-12 08:54 | Outpatient (CLI) | payer OTHER, SELFPAY ==
--- NOTE | 2023-12-12 09:00 | MM_ITS ---
WS: [id number] BILATERAL SCREENING DIGITAL TOMOSYNTHESIS MAMMOGRAM WITH CAD HISTORY: screening COMPARISON: None available. Bilateral CC and MLO views with tomosynthesis and synthetic mammography submitted. Computer aided det ection analyzed. Breast composition: There are scattered areas of fibroglandular density. No suspicious masses, microc alcifications or architectural distortion. MM/[id number] IMPRESSION: BI-RADS: 1-Negative FOLLOW UP: 1 Year Follow-up
== END 2023-12-12 08:55 | disposition home or self-care (01) ==
LOC: RAD 08:54
PROVIDERS: PCP Clinical Nurse Specialist Adult Health; Visit Provider Clinical Nurse Specialist Adult Health
DX: Z12.31 Encounter for screening mammogram for malignant neoplasm of breast (principal); R92.323 Mammographic fibroglandular density, bilateral breasts
CPT/HCPCS: 77063; 77067; 93005

== ENCOUNTER 2024-01-09 07:45 | Outpatient (CLI) | payer OTHER, SELFPAY ==
--- NOTE | 2024-01-09 07:45 | USCV_ITS ---
Irena Joyce Age: 63 Gender: F : 1960 Exam Date: 01/09/2024 07:57 Ordering Phys: Ethel Eugene MD ([email or web address]) Technologist: Exam Location: [facility] Indication: ihss BP: 130 / 80 HR: 61 Rhythm: Sinus Technical Quality: Adequate MEASUREMENTS (Male / Female) Normal Values 2D ECHO LV Diastolic Diameter PLAX 3.5 cm 4.2 - 5.9 / 3.9 - 5.3 cm IVS Diastolic Thickness 1.4 cm 0.6 - 1.0 / 0.6 - 0.9 cm IVS Systolic Thickness 2.0 cm LVPW Diastolic Thickness 1.1 cm 0.6 - 1.0 / 0.6 - 0.9 cm LVPW Systolic Thickness 2.0 cm LVOT Diameter 2.1 cm LV Ejection Fraction 2D Teich 80.4 % LV Ejection Fraction MOD 2C 61.6 % LV Ejection Fraction 2C AL 62.6 % LA Diameter 3.9 cm RA Systolic Volume 4C AL 19.6 ml RA Systolic Volume 4C MOD 17.8 ml Aorta at Sinotubular Diameter 2.9 cm IVC Diameter 3.1 cm M-MODE LA Ao Ratio MM 1.6 AV Cusp Separation MM 1.7 cm DOPPLER MV Peak Velocity 121.0 cm/s TV Peak Velocity 279.0 cm/s TR Peak Velocity 302.0 cm/s TR Peak Gradient 36.5 mmHg TV Peak E Velocity 117.0 cm/s Right Atrial Pressure 3.0 mmHg Pulmonary Artery Systolic Pressu 39.5 mmHg PV Peak Velocity 146.0 cm/s FINDINGS Left Ventricle Normal left ventricular size and systolic function, EF 62%. Moderate concentric left ventricular hypertrophy.no regional wall motion abnormalities. Right Ventricle The right ventricle is normal in size and function. Right Atrium The right atrium is normal in size. Left Atrium Mildly increased left atrial size. Mitral Valve Moderate mitral valve regurgitation. Aortic Valve Thickened aortic valve. Tricuspid Valve Trace to mild tricuspid valve regurgitation. Pulmonic Valve Pulmonic valve not well visualized. Pericardium No pericardial effusion. Aorta Normal ascending aorta dimension. IVC Dilated IVC. CONCLUSIONS Normal left ventricular size and systolic function, EF 62%. Moderate concentric left ventricular hypertrophy.no regional wall motion abnormalities. Mildly increased left atrial size. Moderate mitral valve regurgitation. Thickened aortic valve with a features of aortic valve sclerosis. Trace to mild tricuspid valve regurgitation. Estimated pulmonary artery peak systolic pressure 40 mmHg There is no pericardial effusion. There are no intracardiac masses. Compared to the study report from 07/15/2019, the mitral regurgitation appears to be less severe Dr Ethel Eugene MD FAC (Electronically Signed) Final Date: 11 Jan 2024 09:17 S
== END 2024-01-09 07:46 | disposition home or self-care (01) ==
LOC: RAD 07:45
PROVIDERS: PCP Clinical Nurse Specialist Adult Health; Visit Provider Internal Medicine Cardiovascular Disease
DX: R06.09 Other forms of dyspnea (principal); I34.0 Nonrheumatic mitral (valve) insufficiency
CPT/HCPCS: 93306

== ENCOUNTER → 2024-12-08 10:44 | Outpatient (BNVA) | payer OTHER, SELFPAY | PROVIDERS: PCP Clinical Nurse Specialist Adult Health; Visit Provider Clinical Nurse Specialist Adult Health | DX: J20.6 Acute bronchitis due to rhinovirus (principal); G47.30 Sleep apnea, unspecified; E11.9 Type 2 diabetes mellitus without complications; G62.9 Polyneuropathy, unspecified; Z12.11 Encounter for screening for malignant neoplasm of colon; I10 Essential (primary) hypertension; I34.0 Nonrheumatic mitral (valve) insufficiency | CPT/HCPCS: 80053; 80061; 81003; 82607; 83036; 85025 ==

== ENCOUNTER 2025-06-08 10:57 | Outpatient (CLI) | payer OTHER, SELFPAY | END 2025-06-08 10:58 | disposition home or self-care (01) | LOC: SLEEP 10:59 | PROVIDERS: PCP Clinical Nurse Specialist Adult Health; Referring Provider Specialist; Visit Provider Internal Medicine Pulmonary Disease | DX: G47.33 Obstructive sleep apnea (adult) (pediatric) (principal) | CPT/HCPCS: G0399 ==